=== PATIENT | female | born 1990 | race Caucasian/White ===

== ENCOUNTER 2016-11-08 14:33 | Emergency (ER) | payer MEDICAID ==
[~2016-11-08] VITALS: Ht 170.2 cm; Wt 58.0 kg
[~2016-11-08 14:33] MED LIST: ACET1CAP18 PO; IBUP800T23 PO; PREN29TA PO
[2016-11-08 14:38] VITALS: BP 102/64; PULSE 112; RESP 18; TEMP 98.5; O2SAT 98
[2016-11-08 14:50] VITALS: PULSE 98; O2SAT 100
[2016-11-08] MEDS ORDERED: PENI500T PO ×2 (14:55→15:07)
[2016-11-08] MEDS ORDERED: PERI0.126 SWISH-SPIT ×2 (14:55→15:07)
[2016-11-08] MEDS ORDERED: TRAM50TA PO ×2 (14:55→15:07)
[2016-11-08] MEDS ORDERED: MAGICPED SWISH-SWAL ×2 (14:55→15:07)
--- NOTE | 2016-11-08 14:59 | PD ---
HPI Chief Complaint: Oral / Dental Pain or Problem Time Seen by Provider: 14:56 Travel History International Travel<30 days: No Contact w/Intl Traveler<30days: No Traveled to known affect area: No History of Present Illness HPI Patient's 26-year-old female with a history of asthma who currently smokes and is at 5 months gestational age presenting with dental pain. Her OB is Dr. Ching. She states yesterday a lower right tooth has been hurting and today it is swollen. He denies any bleeding or discharge. She states that she thinks she a swollen gland on the right anterior neck. This is some pain with swallowing but has been eating and drinking normally. No difficulty breathing. She denies fever, chills, nausea and vomiting. She denies neck pain or stiffness. She denies any abdominal pain, changes in movement vaginal bleeding or discharge. She saw her OB 4 days prior an ultrasound exam is normal. No changes since then. PFSH Past Medical History Asthma: Yes Anxiety: Yes Heart Rhythm Problems: Yes (RAPID HEART RATE) Cardiovascular Problems: Yes (IRREGULAR HEARTBEAT AT 15, NONE SINCE) Diminished Hearing: No Respiratory: Yes (ASTHMA) Immunizations Current: Yes Pneumonia: Yes ?: LMP: APPROX 5 MONTHS : 4 Para: 2 Miscarriage: 2 : 0 Ovarian Cysts: Yes Social History Alcohol Use: No Tobacco Use: No (quit 1 month ago) Substance Use: No Allergies-Medications (Allergen,Severity, Reaction): Coded Allergies: Latex (Verified Allergy, Severe, Rash, 11/08/16) Dilaudid (Verified Adverse Reaction, Severe, Numbness, 11/08/16) Reported Meds & Prescriptions Reported Meds & Active Scripts Active Medrol Dosepak (Methylprednisolone) 4 Mg Dspk 4 Mg PO DIRECTED Per Pharmacist direction Tramadol (Tramadol HCl) 50 Mg Tab 50 Mg PO Q6H PRN Magic Mouthwash Pediatric/Adult Liq (Lidocaine/Diphenhydr/Alum/Mg/Simeth) 60 Ml Susp 10 Ml SWISH-SWAL ACHS Each 5 mL contains: Diphenydramine 4.5 mg,Viscous Lidocaine 2% 10 mg, Maalox Advanced Regular Strength 2.7 ml (Aluminum hydroxide 108 mg, Magnesium hydroxide 108 mg and Simethicone 10.8 mg) Peridex Liq (Chlorhexidine Gluconate (Mouth) Liq) 0.12% Soln 15 Ml SWISH-SPIT BID Penicillin V Potassium 500 Mg Tab 500 Mg PO Q6H 10 Days Reported Tylenol (Acetaminophen) 325 Mg Cap 325 Mg PO Q6H PRN Ibuprofen 800 Mg Tab 800 Mg PO Q6HR PRN Plus Iron 29-1 mg ( Vit-Iron Carbonyl) 1 Tab Tab 1 Tab PO DAILY Review of Systems Except as stated in HPI: all other systems reviewed are Neg Physical Exam Narrative GENERAL: Well-developed and well-nourished adult female in no acute distress. SKIN: Warm and dry. Good turgor without tenting. HEAD: Normocephalic and atraumatic. EYES: PERRL bilaterally, 5mm. EOMI bilaterally. No injection or icterus present. No proptosis. Lids without edema or erythema. ENT: Very poor overall oral dentition. Around tooth #27. There is some erythema of the gingiva and edema on the buccal side with tenderness to palpation, no induration or fluctuance. No buccal or sublingual masses. Buccal mucosa pink and moist. Oropharynx free of erythema, tonsillar hypertrophy , masses, swelling, asymmetry and exudates. Uvula midline and airway patent. NECK: Supple, no anginal signs. Trachea midline, no JVD. 2 subsequent centimeter anterior cervical lymph nodes on the right, mobile and tender. No masses or induration palpated. CARDIOVASCULAR: Regular rate(96) and rhythm without murmurs, rubs, clicks or gallops. Radial and posterior tibial pulses 2+ bilaterally. No pedal edema. RESPIRATORY: Clear to auscultation bilaterally with symmetrical rise and fall, no distress or use of accessory muscles. GASTROINTESTINAL: Gravid. Nontender. No masses or organomegaly present. MUSCULOSKELETAL: No gait disturbances. Patient freely moving all four extremities spontaneously. Extremities without clubbing, cyanosis, or edema. No obvious deformities. NEUROLOGIC: CN II-XII grossly intact. Awake and alert. Motor grossly within normal limits. Normal speech. PSYCHIATRIC: Appropriate mood and affect; insight and judgment normal. Data Data Last Documented VS Vital Signs Date Time Temp Pulse Resp B/P Pulse Ox O2 Delivery O2 Flow Rate FiO2 11/08/16 14:55 18 11/08/16 14:50 98 100 Room Air 11/08/16 14:38 98.5 102/64 Orders Methylprednisolone So Succ Inj (Solumedr (11/08/16 15:15) Albuterol-Ipratropium Neb (Duoneb Neb) (11/08/16 15:15) Tramadol (Ultram) (11/08/16 15:45) MDM Medical Decision Making Medical Screen Exam Complete: Yes Emergency Medical Condition: Yes Differential Diagnosis Caries versus Periapical abscess versus cellulitis versus Tooth Fracture vs less likely Ludwigs Angina Narrative Course Patient is a 26-year-old female with a history of asthma currently 5 months presenting with dental pain. History and physical suggest a early periapical abscess without oropharyngeal involvement. She does have some right- sided anterior cervical lymphadenopathy. She is afebrile, nontoxic and hasn't no meningeal signs. No signs of Caleb's angina. Her slightly elevated in triage which is chronic per patient. Indeed she's had multiple visits and she is tachycardic at most of them, EKG shows sinus tachycardia previously. On my exam heart rate is 96 and regular and she has no cardial pulmonary symptoms. Patient to be given prescription for pen VK, Magic mouthwash, Peridex and short course of tramadol. While I was writing the chart up the patient told the nurse she was having an asthma attack. I reexamined her and she does have diffuse wheezing without stridor. Patient was given Solu-Medrol and DuoNeb 2. Recheck feel that the wheezing has resolved and her sounds are back to normal and pre-exacerbation state. Patient denies any increase in frequency of asthma attacks lately, states she chronically has every few days. Patient was given prescription for Medrol Dosepak as well and recommended smoking cessation.See discharge paperwork for further instructions. The plan was discussed with the patient who acknowledged their understanding and agreement. Reinforced the follow-up with primary care is critically important. Patient instructed on emergent conditions that should prompt return to ED. Diagnosis Primary Impression: Periapical abscess Additional Impressions: Lymphadenopathy of right cervical region Asthma exacerbation Qualified Code: Z33.1 - , unspecified gestational age Patient Instructions: Cigarette Smoking and Your Health (GEN), Dental Abscess ( ED), General Instructions, How to Stop Smoking (ED) Additional Instructions: Take medication as directed Your medications may cause drowsiness. Do not take with alcohol or sedatives. Do not operate a motor vehicle or heavy machinery while on medication. Use salt water gargles, Orajel, or other OTC products for topical pain relief Apply ice packs hourly as needed to help with swelling and pain Very important to stop smoking as this will affect your health, asthma and the health of your baby Schedule with dentist [facility] for definitive treatment Schedule follow-up with PCP to discuss smoking cessation and asthma treatment plan Return to the ED for any acute worsening of symptoms Med/Other Pt SpecificInfo: Prescription(s) given Scripts Methylprednisolone Dosepak (Medrol Dosepak)4 Mg Dspk4 Mg PO DIRECTED #1 DSPK Per Pharmacist direction Prov:Fernie Fraga MD 11/08/16 Tramadol 50 Mg Tab50 Mg PO Q6H PRN (PAIN) #12 TAB Ref 0 Prov:Fernie Fraga MD 11/08/16 Urhovkmhdqkecxc-Ytalrriub-Iyl-Alum-Simeth Liq (Magic Mouthwash Pediatric/Adult Liq)60 Ml Susp10 Ml SWISH-SWAL ACHS #120 ML Each 5 mL contains: Diphenydramine 4.5 mg,Viscous Lidocaine 2% 10 mg, Maalox Advanced Regular Strength 2.7 ml (Aluminum hydroxide 108 mg, Magnesium hydroxide 108 mg and Simethicone 10.8 mg) Prov:Fernie Fraga MD 11/08/16 Chlorhexidine Gluconate (Mouth) Liq (Peridex Liq)0.12% Soln15 Ml SWISH-SPIT BID #473 ML Prov:Fernie Fraga MD 11/08/16 Penicillin V Potassium 500 Mg Plm356 Mg PO Q6H 10 Days Prov:Fernie Fraga MD 11/08/16 Disposition: 01 DISCHARGE HOME Condition: Stable Adalberto Carroll III Nov 08, 2016 14:58
[2016-11-08] MEDS: RESP: ALBUTEROL 2.5 MG/IPRATROPIUM 0.5 MG NEB (SCH) INH (15:14)
[2016-11-08] MEDS ORDERED: methylPREDNISolone SOD SUCC 125 MG/2 ML VIAL IM ONE (15:15)
[2016-11-08] MEDS ORDERED: MEDR4PAK PO (15:43)
[2016-11-08] MEDS ORDERED: traMADol HCL 50 MG TAB PO ONE (15:45)
[2016-11-08 16:53] VITALS: RESP 18
== END 2016-11-08 16:52 | disposition home or self-care (01) ==
LOC: PHEFT 14:33
DX: O99.519 Diseases of the respiratory system complicating pregnancy, unspecified trimester (principal); K04.7 Periapical abscess without sinus; J45.901 Unspecified asthma with (acute) exacerbation; Z87.891 Personal history of nicotine dependence
CPT/HCPCS: 94640; 94664; 96372; 99283; J2930

== ENCOUNTER 2016-11-26 18:42 | Emergency (ER) | payer MEDICAID ==
[~2016-11-26 18:42] MED LIST changes: +MAGICPED SWISH-SWAL; +MEDR4PAK PO; +PENI500T PO; +PERI0.126 SWISH-SPIT; +TRAM50TA PO
--- NOTE | 2016-11-26 19:57 | PD ---
HPI Chief Complaint abdominal pain Date Seen: Nov 26, 2016 Time Seen: 19:48 Travel History International Travel<30 Days: No Contact w/Intl Traveler<30Days: No Known Affected Area: No History of Present Illness HPI 26yo at 19 weeks gestation c/o lower abdominal pain following a sprint. Child was running away when pt sprinted to grab him. Just after the run felt a sharp pain in RLQ radiating to groin. Denies contraction, good movement Para: 2 : 6 Miscarriage: 2 History Past Medical History Narrative Medical Seizures that occurred after a rattlesnake bite Obstetric History Obstetric History x 2 Past Surgical History Narrative Surgical None Family History Family History: Negative Social History Alcohol Use: No Tobacco Use: Yes Substance Abuse: Yes (Denies this ) Allergies-Medications (Allergen,Severity, Reaction): Coded Allergies: Latex (Verified Allergy, Severe, Rash, 11/08/16) Dilaudid (Verified Adverse Reaction, Severe, Numbness, 11/08/16) Home Meds Active Scripts Methylprednisolone Dosepak (Medrol Dosepak)4 Mg Dspk4 Mg PO DIRECTED #1 DSPK Per Pharmacist direction Prov:Fernie Fraga MD 11/08/16 Tramadol 50 Mg Tab50 Mg PO Q6H PRN (PAIN) #12 TAB Ref 0 Prov:Fernie Fraga MD 11/08/16 Nznvcctnlekvalz-Ykftmzmkj-Tww-Alum-Simeth Liq (Magic Mouthwash Pediatric/Adult Liq)60 Ml Susp10 Ml SWISH-SWAL ACHS #120 ML Each 5 mL contains: Diphenydramine 4.5 mg,Viscous Lidocaine 2% 10 mg, Maalox Advanced Regular Strength 2.7 ml (Aluminum hydroxide 108 mg, Magnesium hydroxide 108 mg and Simethicone 10.8 mg) Prov:Fernie Fraga MD 11/08/16 Chlorhexidine Gluconate (Mouth) Liq (Peridex Liq)0.12% Soln15 Ml SWISH-SPIT BID #473 ML Prov:Fernie Fraga MD 11/08/16 Penicillin V Potassium 500 Mg Pfz040 Mg PO Q6H 10 Days Prov:Fernie Fraga MD 11/08/16 Reported Medications Acetaminophen (Tylenol)325 Mg Kva897 Mg PO Q6H PRN (Pain 3-5; if unable to take PO) Ref 0 10/16/16 Ibuprofen 800 Mg Ydg434 Mg PO Q6HR PRN (PAIN) #40 TAB Ref 0 10/16/16 Vit-Iron Carbonyl ( Plus Iron 29-1 mg)1 Tab Tab1 Tab PO DAILY #30 TAB Ref 0 09/23/16 Review of Systems Except as stated in HPI: all other systems reviewed are Neg Physical Exam Narrative GENERAL: Well-nourished, well-developed patient. SKIN: Warm and dry. HEAD: Normocephalic and atraumatic. EYES: No scleral icterus. No injection or drainage. ENT: No nasal drainage noted. Mucous membranes pink. Airway patent.Poor dentition NECK: Supple, trachea midline. No JVD. CARDIOVASCULAR: Regular rate and rhythm without murmurs, gallops, or rubs. RESPIRATORY: Breath sounds equal bilaterally. No accessory muscle use. BREASTS: Bilateral exam showed no masses , no retractions, no nipple discharge. ABDOMEN/GI: Abdomen soft, non-tender, bowel sounds present, no rebound, no guarding Gravid to 18 weeks size Fundal Height: [-] GENITOURINARY: External Genitalia: intact and normal in appearance BUS glands: [-] normal Cervix: [-] appears closed with speculum exam, some mucous, no infectious discharge Dilatation: [-] Effacement: [-] Station: [-] Presentation: [-] Membranes: [intact or ruptured] Uterine Contractions: [-] no contractions on toco FHT's: Category: [-] 142 by doppler Baseline: [-] Reactive: [-] Variability: [-] Decels: [-] EXTREMITIES: No cyanosis or edema. BACK: Nontender without obvious deformity. No CVA tenderness. NEUROLOGICAL: Awake and alert. Motor and sensory grossly within normal limits. Five out of 5 muscle strength in all muscle groups. Normal speech. MDM Plan Musculoskeletal pain following physical activity 19 weeks gestation Diagnosis Diagnosis: Primary Impression: Abdominal pain in Additional Impressions: 19 weeks gestation of History of seizure disorder Disposition: 01 DISCHARGE HOME Elisa Jenkins MD Nov 26, 2016 19:57
== END 2016-11-26 20:11 | disposition home or self-care (01) ==
LOC: HOBED 18:42
DX: O26.892 Other specified pregnancy related conditions, second trimester (principal); R10.31 Right lower quadrant pain; Z72.0 Tobacco use; Z3A.19 19 weeks gestation of pregnancy; G40.909 Epilepsy, unspecified, not intractable, without status epilepticus
CPT/HCPCS: 99283

== ENCOUNTER 2016-12-04 13:59 | Emergency (ER) | payer MEDICAID ==
--- NOTE | 2016-12-04 14:48 | PD ---
HPI Chief Complaint decreased movement Date Seen: Dec 04, 2016 Time Seen: 14:48 Travel History International Travel<30 Days: No Contact w/Intl Traveler<30Days: No History of Present Illness HPI 26 year-old at 20.2 (not in paperwork, per pt EDC 04/18/17, but she is unsure) who presents to OB ED with decreased movement and dizziness x1 day and continued tooth pain months in duration. helps supplement history. Decreased movement: Last felt baby move was yesterday PM. Denies vaginal bleeding, loss of fluid, contractions, or trauma. Worried she still does not feel baby despite category I tracing. Reassurance provided. Tooth pain: Long-standing tooth pain secondary to known R-sided abscess in mouth and poor dentition. Denies hx of IVDU, states she has never brushes her teeth. Magic mouthwash minimally improves pain. Refractory to Tylenol. Denies fevers/chills, nausea/vomiting. Decreased PO intake: Unable to eat much, even solid foods, due to tooth pain. Worried she does not receive food stamps for two weeks and no soft foods in her home. Discussed trial of liquid diet until able to get dental care. Dizziness: occurred this morning while cleaning. [place] like room spinning, has continued intermittently since then- must hold onto objects to help walk in straight line. Denies syncope, loss of consciousness. Of note, reports astigmatism and has already been evaluated and is getting glasses next week. Is able to play game on tablet in room without difficulty with vision or balance. Tobacco Abuse: 4 cig/day. "Has cut back" Counselled to quit and choose quit day. She feels unable to quit suddenly since has smoked 15 years. ROS otherwise negative. Denies dysuria, hematuria, dyspareunia, vaginal pruritus , abdominal pain, chest pain, palpitations, or shortness of breath. Para: 2 : 6 Miscarriage: 3 : 0 History Past Medical History Narrative Medical Seizures x1 after rattlesnake bite Asthma Poor dentition- loss of teeth, dental caries Dental abscess R side of mouth Astigmatism Tobacco use Obstetric History Obstetric History 3 miscarriages (early losses, all within 2-4 weeks, per pt) 2 living children (one male, one female) born via vaginal delivery Past Surgical History Surgical History: No Previous Surgery Family History Narrative Family History Per EMR Family History: Negative Social History Narrative Social History Unemployed, looking for work Alcohol Use: No Tobacco Use: Yes Substance Abuse: No (History of, denies this ) Allergies-Medications (Allergen,Severity, Reaction): Coded Allergies: Latex (Verified Allergy, Severe, Rash, 11/08/16) Dilaudid (Verified Adverse Reaction, Severe, Anaphylaxis, 12/04/16) Home Meds Active Scripts Jhxlvufepwlvexd-Kafshlimj-Prt-Alum-Simeth Liq (Magic Mouthwash Pediatric/Adult Liq)60 Ml Susp10 Ml SWISH-SWAL ACHS #120 ML Each 5 mL contains: Diphenydramine 4.5 mg,Viscous Lidocaine 2% 10 mg, Maalox Advanced Regular Strength 2.7 ml (Aluminum hydroxide 108 mg, Magnesium hydroxide 108 mg and Simethicone 10.8 mg) Prov:Fernie Fraga MD 11/08/16 Reported Medications Acetaminophen 500 Mg Ovj049 Mg PO Q6HR PRN (pain) Ref 0 12/04/16 Vit-Iron Carbonyl ( Plus Iron 29-1 mg)1 Tab Tab1 Tab PO DAILY #30 TAB Ref 0 09/23/16 Discontinued Reported Medications Acetaminophen (Tylenol)325 Mg Owp237 Mg PO Q6H PRN (Pain 3-5; if unable to take PO) Ref 0 10/16/16 Ibuprofen 800 Mg Mbc529 Mg PO Q6HR PRN (PAIN) #40 TAB Ref 0 10/16/16 Discontinued Scripts Methylprednisolone Dosepak (Medrol Dosepak)4 Mg Dspk4 Mg PO DIRECTED #1 DSPK Per Pharmacist direction Prov:Fernie Fraga MD 11/08/16 Tramadol 50 Mg Tab50 Mg PO Q6H PRN (PAIN) #12 TAB Ref 0 Prov:Fernie Fraga MD 11/08/16 Chlorhexidine Gluconate (Mouth) Liq (Peridex Liq)0.12% Soln15 Ml SWISH-SPIT BID #473 ML Prov:Fernie Fraga MD 11/08/16 Penicillin V Potassium 500 Mg Sqg640 Mg PO Q6H 10 Days Prov:Fernie Fraga MD 11/08/16 Review of Systems Except as stated in HPI: all other systems reviewed are Neg Physical Exam Narrative CONST: Adult gravid female in moderate distress secondary to R jaw pain. Thin habitus. Mildly malodorous with unbrushed hair. Appears tired. DERM: Warm and Dry HEENT: Pupils equal and round. No mydriasis or miosis. No conjunctival injection. Bilateral ptosis of eyelids. 14-18 beat vertical and horizontal nystagmus. No drifting after settled. CV: Regular rate and rhythm. Radial pulse 2+. RESP: Breathing well on room air. GI: Abdomen gravid with fundus appropriately at umbilicus at 20 weeks. FHT's: Category: 1 Baseline: 145 Reactive: Yes Variability: Mod Decels: No MSK: Diffuse atrophy of muscle tone. No peripheral edema NEURO: Able to move all limbs against gravity. Difficulty ambulating independently- holds onto brewer PSYCH: Slow to process and respond to questions. Speech is slowed and somewhat slurred. Vocabulary is appropriate. Somewhat flat affect, did not smile during interview. Appropriately teary at times, such as when discussing losses. Did not appear do be responding to internal stimuli. No difficulty staying awake during interview. Data Data Vital Signs Reviewed: Yes Orders Acetaminophen Inj (Ofirmev Inj) (12/04/16 15:30) Vital Signs (Adult) .ON ADMISSION (12/04/16 15:24) ^ Labor Status (12/04/16 15:24) ^ Hydration (12/04/16 15:24) Acetaminophen (Tylenol) (12/04/16 16:00) MDM Medical Record Reviewed: Yes Plan 26 year-old at 20.2, with EDC ~04/18/17, presents with c/o decreased movement, dizziness, and jaw pain. 1. of 20 weeks gestation -Continue routine antepartum care -Follow up with OBGYN at established visit 12/10/16 2. Movement in Second Trimester -Category I tracing of fetus re-assuring -Fundus appropriate for dates (at umbilicus at 20.2) -Reassurance provided 3. Dental Abscess, Mouth Pain - Pt repeatedly denied any history of IVDU, past or present - Team strongly and repeatedly instructed patient to make dental appointment [facility] for treatment of dental abscess and likely tooth removal - Letter of appropriateness to receive dental care while documented in chart and provided to patient to give to dentist - Copy of 2007 ACOG recommendations for dental care provided to patient ([email or web address]) - Received Rocephin 1g PO in OB ED - As this was patient's 3rd visit to our OB ED during this and has not yet sought dental care, treatment with opioids discussed and decided unwise course of action- especially with hx anaphylactic rxn to Dilaudid - For outpatient pain control, recommend Tylenol 500mg q6h PRN pain, Oragel PRN , and Magic mouthwash 4. Dizziness -Despite attestations of severe dizziness, blurred vision, and ataxia, playing game on tablet that requires quite astute vision to move ball through a complicated maze -Follow up with printing assistant in upcoming week for glasses which are already ordered -Pt reports decreased PO intake secondary to tooth pain. Recommend all liquid diet until able to tolerate soft solids -Hydration with Gatorade given in OB ED 5. Slowed Speech -Ddx: substance abuse vs pain-induced from dental abscess vs baseline secondary to seizure vs Wernicke's vs other -UDS pending- anticipate possible + BZD from Fioricet, though pt states has been out of it for "a while". Rx written 3 weeks ago. 6. Headaches -Pt states out of Fiorecet, declined to re-fill -Follow up with PCP for continued management 7. Tobacco Use -Reports 4 cigs/day -Strongly encouraged stopping smoking, especially while SDW: Dr Benitez Diagnosis Diagnosis: Primary Impression: 20 weeks gestation of Additional Impressions: movement present during in second trimester Dental abscess Mouth pain Dizziness Disposition: 01 DISCHARGE HOME Condition: Stable Dahiana Lawson MD R1 Dec 04, 2016 14:48
[2016-12-04] MEDS ORDERED: ACETAMINOPHEN 1000 MG/100 ML VIAL IV ONE (15:30)
[2016-12-04] MEDS ORDERED: ACETAMINOPHEN 500 MG CPLT PO ONE (16:00)
[2016-12-04] MEDS ORDERED: ACET500C PO (16:42)
[2016-12-04 17:06] LABS: AMPHETAMINE, URINE NEG (NEG); BARBITURATES, URINE NEG (NEG); COCAINE, URINE NEG (NEG)
== END 2016-12-04 16:13 | disposition home or self-care (01) ==
LOC: HOBED 13:59
DX: O26.92 Pregnancy related conditions, unspecified, second trimester (principal); K04.7 Periapical abscess without sinus; R42 Dizziness and giddiness; Z72.0 Tobacco use; Z3A.20 20 weeks gestation of pregnancy
CPT/HCPCS: 80307; 99283

== ENCOUNTER 2017-11-01 16:42 | Emergency (ER) | payer MEDICAID, OTHER ==
[~2017-11-01] VITALS: Ht 157.5 cm; Wt 60.0 kg
[~2017-11-01 16:42] MED LIST changes: -ACET1CAP18 PO; +ACET500C PO; -IBUP800T23 PO; -MEDR4PAK PO; -PENI500T PO; -PERI0.126 SWISH-SPIT; -TRAM50TA PO
[2017-11-01 16:54] VITALS: BP 115/61; PULSE 105; RESP 18; O2SAT 99
[2017-11-01 16:57] VITALS: BP 115/61; PULSE 88; RESP 18; TEMP 98.3; O2SAT 99
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
[2017-11-01 18:11] LABS: AUTOMATED NEUTROPHIL # 5.2 TH/MM3 (1.8-7.7); BASOPHIL # 0.1 TH/MM3 (0-0.2); BASOPHIL % 0.9 % (0.0-2.0); EOSINOPHIL # 0.1 TH/MM3 (0-0.4); EOSINOPHIL % 1.3 % (0.0-4.0); HEMATOCRIT 36.7 % (35.0-46.0); HEMOGLOBIN 12.8 GM/DL (11.6-15.3); LYMPH % 33.2 % (9.0-44.0); LYMPHOCYTE # 2.9 TH/MM3 (1.0-4.8); MEAN CELL VOLUME 88.4 FL (80.0-100.0); MEAN CORPUSCULAR HEMOGLOBIN 30.8 PG (27.0-34.0); MEAN CORPUSCULAR HGB CONC 34.8 % (32.0-36.0); MEAN PLATELET VOLUME 8.8 FL (7.0-11.0); MONO % 5.8 % (0.0-8.0); MONOCYTE # 0.5 TH/MM3 (0-0.9); NEUT % 58.8 % (16.0-70.0); PLATELET COUNT 316 TH/MM3 (150-450); RED BLOOD COUNT 4.16 MIL/MM3 (4.00-5.30); RED CELL DISTRIBUTION WIDTH 13.7 % (11.6-17.2); WHITE BLOOD COUNT 8.8 TH/MM3 (4.0-11.0)
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
[2017-11-01 18:41] LABS: BICARBONATE 27.8 MEQ/L (21.0-32.0); CALCIUM 8.9 MG/DL (8.5-10.1); CREATININE 0.67 MG/DL (0.50-1.00)
[2017-11-01] MEDS ORDERED: IBUPROFEN 800 MG TAB PO ONE (19:00)
== END 2017-11-01 19:03 | disposition home or self-care (01) ==
LOC: NEPE 16:42
DX: S09.90XA Unspecified injury of head, initial encounter (principal); S16.1XXA Strain of muscle, fascia and tendon at neck level, initial encounter; S39.012A Strain of muscle, fascia and tendon of lower back, initial encounter; J45.909 Unspecified asthma, uncomplicated; F41.9 Anxiety disorder, unspecified; F17.210 Nicotine dependence, cigarettes, uncomplicated; V28.4XXA Motorcycle driver injured in noncollision transport accident in traffic accident, initial encounter; Z79.899 Other long term (current) drug therapy; Z88.5 Allergy status to narcotic agent
CPT/HCPCS: 70450; 71045; 72125; 72131; 73502; 80048; 84703; 85025; 85610; 85730; 99285